=== PATIENT | male | born 1980 | race Caucasian/White ===

== ENCOUNTER 2016-07-30 14:04 | Emergency (ER) | payer OTHER ==
[2016-07-30] MEDS ORDERED: KETOROLAC TROMETHAMINE 60 MG/2 ML VIAL ONE (14:29)
--- NOTE | 2016-07-30 15:13 | RAD ---
CHEST 2 VIEWS HISTORY: Status post fall left lower side. Frontal and lateral chest radiographs dated 07/30/2016. COMPARISON: None. FINDINGS: FOCAL AIRSPACE OPACITY: No gross airspace consolidation. PLEURAL EFFUSION: None. CARDIOMEDIASTINAL SILHOUETTE: Nonenlarged. PNEUMOTHORAX: None identified. OSSEOUS STRUCTURES: No grossly destructive lesions. No obvious displaced rib fracture. IMPRESSION: No acute cardiopulmonary process noted. No pleural effusion, pneumothorax, or obvious displaced rib fracture.
== END 2016-07-30 15:42 | disposition home or self-care (01) ==
LOC: ED 14:04
DX: S29.9XXA Unspecified injury of thorax, initial encounter (principal); W18.30XA Fall on same level, unspecified, initial encounter; Y92.9 Unspecified place or not applicable
CPT/HCPCS: 71020; 99283 ×2; 96372; J1885